=== PATIENT | female | born 1990 | race African-American/Black ===

== ENCOUNTER 2016-12-09 08:59 | Emergency (ER) | payer OTHER ==
[~2016-12-09 08:59] MED LIST: *DENIES; CLEOCIN300 MG PO; GOODY'S EX-STR1 EAC1 PO; NORCO1 TAB PO
== END 2016-12-09 09:03 | disposition home or self-care (01) ==
LOC: ER 08:59
DX: M25.561 Pain in right knee (principal); Z79.82 Long term (current) use of aspirin
CPT/HCPCS: 73560-RT; 99283